=== PATIENT | female | born 1950 | race Caucasian/White ===

== ENCOUNTER 2016-06-06 20:21 | Emergency (ER) | payer OTHER ==
[2016-06-06 20:29] VITALS: TEMP 98.2
--- NOTE | 2016-06-06 20:50 | EDPHY ---
H & P Stated Complaint: L anterior thigh and posterior knee pain and swelling Time Seen by Provider: 06/06/16 20:34 HPI/ROS: CHIEF COMPLAINT: left leg pain and swelling HISTORY OF PRESENT ILLNESS: 65-year-old female presents emergency department reporting left leg pain and swelling that has worsened over the last 2 weeks. Patient reports known arthritis in her left knee. She received a steroid injection in this knee 8 weeks ago. No recent trauma, no recent travel. Patient reports she began with stiffness and swelling to her anterior thigh that has spread to behind her knee and down her calf. She denies numbness or tingling in this leg. Reports it feels very stiff. No fevers or chills, no nausea or vomiting. Patient is on a estrogen and progesterone patch, she does not smoke cigarettes. Patient denies chest pain or shortness of breath. REVIEW OF SYSTEMS: A comprehensive 10 point review of systems is otherwise negative aside from elements mentioned in the history of present illness. Source: Patient Exam Limitations: No limitations - Personal History Current Tetanus/Diphtheria Vaccine: Yes Current Tetanus Diphtheria and Acellular Pertussis (TDAP): Yes Tetanus Vaccine Date: 2011 - Medical/Surgical History Hx Asthma: No Hx Chronic Respiratory Disease: No Hx Diabetes: No Hx Cardiac Disease: No Hx Renal Disease: No Hx Cirrhosis: No Hx Alcoholism: No Hx HIV/AIDS: No Hx Splenectomy or Spleen Trauma: No Other PMH: toe surgery, cholecystectomy, nerve release RLE, high cholesterol, white matter disease, degenerative joint disease, arthritis, L knee meniscus tear, palpitations - Social History Smoking Status: Never smoked - Physical Exam Exam: Physical Exam Gen: Alert and Oriented, NAD HEENT: PERRL, moist mucous membranes NECK: no meningismus CV: regular rate and regular rhythm PULM: CTAB, no wheezes ABDOMEN: soft, non tender to palpation, BS present BACK: No CVA tenderness NEURO: Neurologically grossly intact EXTREMITIES: Left knee with obvious effusion, full extension, flexion to 90 degrees, swelling to the anterior thigh with tightness. Tenderness to popliteal fossa and posterior calf. No palpable cords. No discoloration skin, 2+ pedal pulses, sensation intact to light touch SKIN: no rash or break in skin on exposed skin PSYCH: answers questions appropriately. Constitutional: Initial Vital Signs Temperature (C) 36.8 C 06/06/16 20:26 Heart Rate 77 06/06/16 20:26 Respiratory Rate 16 06/06/16 20:26 Blood Pressure 143/74 H 06/06/16 20:26 O2 Sat (%) 96 06/06/16 20:26 O2 Delivery Mode Room Air Allergies/Adverse Reactions: No Allergies [NA] Allergy (Verified 06/30/14 06:31) Home Medications: Medication Instructions Recorded Estradiol [Vivelle-Dot 0.025MG (*)] 0.5 patch TP Q4D 06/05/14 Lactobacillus Acidophilus 1 cap PO DAILY 06/05/14 [Probiotic] Progesterone, Micronized 100 mg PO Q2D 06/05/14 [Progesterone] Zolpidem Tartrate [Ambien 5MG (*)] 10 mg PO HS 06/05/14 Herbals/Supplements -Info Only 1 ea PO DAILY 06/12/14 Medical Decision Making - Diagnostics Imaging: Left leg ultrasound- Impression: No evidence of deep vein thrombosis in the left lower extremity. Results called and discussed with Ary Bose NP on 06/06/2016 21:08 Dictated By: Ludwin Witt MD Procedures: Procedure: Arthrocentesis. Indication: Therapeutic for pain control Risks, benefits, alternatives of the procedure were discussed with the patient and consent obtained. The patient was prepped and draped in the usual sterile fashion over the left knee joint. Local anesthesia was provided with 1% lidocaine. The joint space was entered with a 18 gauge needle and 50 cc of clear, yellow fluid was obtained. There were no complications. The procedure was performed by myself. Differential Diagnosis: Diagnosis considered but not limited to septic joint, arthritis, DVT, muscle spasms, fracture, gout Departure - Departure Disposition: Home, Routine, Self-Care Clinical Impression: Effusion, left knee Condition: Good Instructions: Osteoarthritis (ED), Swollen Knee Joint (ED) Additional Instructions: Rest, ice, elevate, take 600 mg of ibuprofen every 8 hours with food for 3-5 days, wear Jakob wrap for compression. Follow up with Dr. Karimi as scheduled. Return to the emergency department for fevers, redness, worsening symptoms, new symptoms or concerns. Referrals: Can Karimi MD [Medical Doctor] - As per Instructions
[2016-06-06 22:37] VITALS: BP 138/72; PULSE 74; RESP 18; O2SAT 97
== END 2016-06-06 22:37 | disposition home or self-care (01) ==
PROC: 0S9D3ZZ Drainage of Left Knee Joint, Percutaneous Approach (ICD-10-PCS; principal; 2016-06-06)
DX: M25.462 Effusion, left knee (principal)

== ENCOUNTER → 2016-07-10 | Outpatient (CLI) | payer OTHER | LOC: BMCIMAGING 14:37 → EDSTATUS 14:40 | PROVIDERS: ATTEND Internal Medicine | DX: R05 Cough (principal) ==

== ENCOUNTER → 2016-11-11 | Outpatient (CLI) | payer OTHER | LOC: FIMAGING 13:30 | PROVIDERS: ATTEND Physician Assistant | DX: M79.89 Other specified soft tissue disorders (principal); S90.32XA Contusion of left foot, initial encounter; Z96.652 Presence of left artificial knee joint ==

== ENCOUNTER → 2017-08-26 | Outpatient (CLI) | payer OTHER | LOC: FIMAGING 10:45 | PROVIDERS: ATTEND Orthopaedic Surgery | DX: M25.562 Pain in left knee (principal); Z96.652 Presence of left artificial knee joint; M25.462 Effusion, left knee ==

== ENCOUNTER → 2018-01-07 | Outpatient (CLI) | payer OTHER | LOC: FIMAGING 15:53 | PROVIDERS: ATTEND Orthopaedic Surgery | DX: M25.562 Pain in left knee (principal); M25.462 Effusion, left knee; M71.22 Synovial cyst of popliteal space [Baker], left knee; Z96.652 Presence of left artificial knee joint ==

== ENCOUNTER → 2018-02-09 | Outpatient (CLI) | payer OTHER | LOC: FIMAGING 09:35 | PROVIDERS: ATTEND Orthopaedic Surgery | DX: M25.562 Pain in left knee (principal); G89.28 Other chronic postprocedural pain; Z96.652 Presence of left artificial knee joint | CPT/HCPCS: A9503 ==